=== PATIENT | female | born 1955 | race Caucasian/White ===

== ENCOUNTER → 2018-04-18 10:15 | Outpatient (CLI) | payer OTHER, SELFPAY | PROVIDERS: Family Provider Specialist; PCP Specialist; Visit Provider Nurse Practitioner Family | DX: M85.88 Other specified disorders of bone density and structure, other site (principal); Z78.0 Asymptomatic menopausal state; Z82.62 Family history of osteoporosis | CPT/HCPCS: 77080 ==

== ENCOUNTER 2018-07-21 11:09 | Day surgery (SDC) | payer OTHER, SELFPAY ==
[2018-07-20 13:27] VITALS: BMI 19.3
[2018-07-21] VITALS (7 sets, daily range): BP systolic 106–149; BP diastolic 52–91; PULSE 62–76; RESP 9–15; TEMP 36.2–36.8; O2SAT 95–100; BMI 18.5
--- NOTE | 2018-07-21 | PATH_ITS ---
[facility] Accession Number: [id number] . 01 Material submitted: . PART A: ENDOCERVICAL PART B: ENDOMETRIAL . 02 Diagnosis: A. Endocervical Curettings: Scant endocervical glandular elements; please see comment. . B. Endometrium: Portion of endometrium with features of cystic atrophy; negative for glandular hyperlasia, cytologic atypia, and malignancy. The endometrial tissue demonstrates prominent vessels suggestive of polyp, if clinical and imaging findings are concordant. MRV/07/24/2018 . 02 Comment: A. Due to the scant nature of this biopsy, it may not be entirely medical representative of this patient's endocervix. Additional sampling could be considered, if clinically appropriate. . 02 Electronically signed: . Carla Oates MD, Pathologist NPI- [id number] . 01 Gross description: . A. Received in formalin, labeled with the patient's name and endocervical curettings,consist of a brush containing adherent brown soft and mucoid tissue. This tissue aggregates to 2.0 x 0.4 x 0.3 cm. It is filtered and entirely submitted as A1. B. Received in formalin, labeled with the patient's name and endometria, consists of multiple duran-brown irregularly shaped soft tissues which aggregate to 1.5 x 0.5 x 0.2 cm. The tissues are filtered and are entirely submitted as B1. ([id number]) /MRV . 02 Pathologist provided ICD-10: N85.00 . 02 CPT . 488524, [id number] Performed at: 01 [facility] [address] [place] [address] [address], [place], [place] [id number] MD Ritchie Peng MD Phone: [phone] Performed at: 02 [facility] [place] [address] [place] [id number] MD Sheila Alexandra MD Phone: [phone]
[2018-07-21] MEDS: LACTATED RINGERS 1,000 ML 100 ML IV (12:03)
--- NOTE | 2018-07-21 13:49 | SUR.OPER ---
Lithotomy on padded OR bed, head on pillow, arms secured on padded arm boards at <90 degrees abduction. Legs secured in padded yellow fins stirrups.
--- NOTE | 2018-07-22 17:25 | PM.PREOP ---
Pre-operative Note Interval Note Pre-op Check: Yes History & Physical exam performed today by Physician Changes: No
--- NOTE | 2018-07-22 17:26 | PM.HP.1 ---
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 (Resolved) Surgical History History of colposcopy (Acute) Hx of dilation and curettage (Acute) Family & Social History Tobacco & Substance use: Smoking Status Never smoker Meds Home Medications Medication Instructions Recorded Confirmed Type cholecalciferol (vitamin D3) 2,000 2,000 unit PO DAILY 04/25/18 07/21/18 History unit capsule lactobacillus combination no.9 4 4,000 mmu cells PO DAILY 04/25/18 07/20/18 History billion cell capsule magnesium citrate 125 mg capsule 125 mg PO DAILY cap 04/25/18 07/21/18 History multivitamin 1 tab PO DAILY 07/21/18 07/21/18 History oxycodone-acetaminophen [Percocet] 1 tab PO Q4-6H PRN #10 tab 07/21/18 Rx Allergies Allergy/AdvReac Type Severity Reaction Status Date / Time meperidine [From DEMEROL] Allergy Severe Hallucinati Unverified 07/21/18 12:05 ng Exam Vital Signs (past 8 hours): Oxygen Delivery Method Room Air Oxygen Flow Rate 2 Narrative Exam Narrative: HEENT: No thyromegaly, no anterior cervical or supraclavicular lymphadenopathy. Lungs:Clear to auscultation bilaterally, no wheezes. Cardiovascular: Regular rate and rhythm, no murmurs, rubs, or gallops]. Abdomen: [No scars. No hepatosplenomegaly. No masses palpable.] External genitalia: [Normal] Vagina: [Normal] Cervix: Stenotic Bimanual exam: 5 Week size uterus. Mobile. Rectal: [No masses]. 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 The risks including bleeding, infection, and uterine perforation. She understands these risks and agrees to proceed. A full PAR-Q was held and consent form was signed
--- NOTE | 2018-07-22 17:30 | PM.GYNOP.1 ---
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 After adequate LMA general anesthesia was achieved, she was placed in the dorsal lithotomy position, and prepped and draped in the usual sterile fashion. A pediatric speculum was placed into the vagina and the posterior lip of the cervix was grasped with a single-tooth tenaculum. Using the lacrimal probe dilators the cervix was dilated, and then to the # 7 Hegar dilator. An endocervical curettage was performed. The hysteroscope passed easily into the endometrial cavity. Both fallopian tube ostia were observed. There was a flat posterior polyp. Due to the cervical stenosis and worry about uterine perforation, a decision was made not to use the resectoscope which were require further dilation. The polyp was grasped with polyp forceps and removed in several pieces. Sharp curettage was performed yielding a large amount of endometrial curettings. The instruments were removed from the uterus. The single-tooth tenaculum was removed from the posterior lip of the cervix. The pediatric speculum was removed from the vagina. Sponge, lap, and instrument counts were correct x2. Patient tolerated the procedure well, and was taken to PACU in stable condition. Complications: none Post-operative Condition: stable Disposition: PACU Plan for aftercare: Home after recovery
== END 2018-07-21 15:37 | disposition home or self-care (01) ==
PROVIDERS: Family Provider Specialist; PCP Specialist; Visit Provider Obstetrics & Gynecology
PROC: 0UDB8ZZ Extraction of Endometrium, Via Natural or Artificial Opening Endoscopic (ICD-10-PCS; CPT 58558; principal; 2018-07-21 12:30)
DX: N84.0 Polyp of corpus uteri (principal); N88.2 Stricture and stenosis of cervix uteri; B97.7 Papillomavirus as the cause of diseases classified elsewhere; Z91.89 Other specified personal risk factors, not elsewhere classified
CPT/HCPCS: 58558; J1885; J2250; J2405; J2704; J3010

== ENCOUNTER → 2020-07-01 14:05 | Outpatient (CLI) | payer OTHER, SELFPAY ==
--- NOTE | 2020-07-01 | DI.US.S_ITS ---
PROCEDURE: US FINE NEEDLE ASPIRATION INDICATIONS: Nontoxic single thyroid nodule TECHNIQUE: The indications, alternatives, benefits, risks, and complications of the procedure were explained to the patient. Written informed consent was obtained and placed in the chart. The thyroid region was examined sonographically and a site was chosen for ultrasound guided percutaneous sampling. The skin was prepared and draped in the usual fashion, and anesthetized with 1% lidocaine infiltrated from the skin down to the thyroid gland. Multiple passes were then performed, with contents emptied into an appropriate pathology specimen container. A bandage was applied to the area of access at completion of the study. COMPARISON: None. FINDINGS: Location(s) of lesion(s) sampled: Right thyroid nodule [place]: 25 gauge hypodermic needles. Number of passes: 6 Medications: 1% lidocaine for local anaesthesia. Complications: None. IMPRESSION: Successful ultrasound-guided thyroid nodule fine needle aspiration, with cytology results pending. Please see chart below for management recommendations based on cytology results. [facility] ReportingRecommendationsNon-diagnostic* Repeat US-guided FNA, with on-site cytology evaluation if possible. * Repeated non-diagnostic nodules without high suspicion US features: close observation vs surgical consult. * Consider surgery if nodule has high suspicion US features, grows >20% in 2 dimensions on followup, or patient has clinical risk factors for malignancy. Benign* If nodule has high suspicion US features: repeat US and FNA within 12 months. * If nodule has low to intermediate suspicion US features: repeat US at 12-24 months. If nodule grows (20% increase in at least 2 dimensions, with minimal increase of 2 mm or >50% change in volume), or development of new suspicious US features, then repeat FNA or continue followup. * If nodule has very low suspicion US features: followup US at >24 months. Atypia of undetermined significance, follicular lesion of undetermined significanceRepeat FNA, molecular testing, followup US, or surgical consult.Follicular neoplasm, suspicious for follicular neoplasmSurgical consult; also consider molecular testing. Suspicious for malignancySurgical consult.MalignantSurgical consult. Dictated by: Ahmet Arana M.D. on 07/01/2020 at 17:01 Approved by: Ahmet Arana M.D. on 07/01/2020 at 17:01
== END ==
PROVIDERS: Family Provider Specialist; PCP Specialist; Referring Provider Physician Assistant; Visit Provider Physician Assistant Medical
DX: E04.1 Nontoxic single thyroid nodule (principal)
CPT/HCPCS: 10005